=== PATIENT | male | born 1990 | race Caucasian/White ===

== ENCOUNTER 2017-08-10 09:23 | Inpatient (IN) | payer SELFPAY ==
--- NOTE | 2017-08-10 09:36 | C.PDOC ---
History Of Present Illness 27 year old male presents to the ED for evaluation of new onset swelling and inflammation to right buttock for 3 days. Patient states symptoms are worsening. He denies fever, chills, discharge, trauma. NEW ONSET SWELLING, INFLAMMATION R BUTTOCK X 3 DAYS. WORSENING. NO FEVER, DC, TRAUMA. EXAM MILD DIST NONTOXIC SKIN +R PERIRECTAL/BUTTOCK ERYTHEMA W FOCAL INDURATION C/W ABSCESS. INTACT REMAINDER NEG NPO SINCE LAST NIGHT. CT, PAIN RX Time Seen by Provider: 08/10/17 09:36 History Per: Patient History/Exam Limitations: no limitations Onset/Duration Of Symptoms: Days (3) Current Symptoms Are (Timing): Worse Additional History Per: Patient Past Medical History Reviewed: Historical Data, Nursing Documentation, Vital Signs Vital Signs: Last Vital Signs Temp 97.7 F 08/10/17 09:39 Pulse 89 08/10/17 09:39 Resp 18 08/10/17 09:39 BP 125/80 08/10/17 09:39 Pulse Ox 100 08/10/17 15:29 - Medical History PMH: No Chronic Diseases Surgical History: No Surg Hx Family History: States: Unknown Family Hx Physical Exam - Physical Exam Appears: Non-toxic, Other (in mild distress ) Skin: Normal Color, Warm, Dry Head: Atraumatic, Normacephalic, Other (right perirectal/buttock erythema with focal induration consistent with abscess. intact ) Eye(s): bilateral: Normal Inspection Oral Mucosa: Moist Neck: Supple Chest: Symmetrical, No Deformity, No Tenderness Cardiovascular: Rhythm Regular, No Murmur Respiratory: Normal Breath Sounds, No Rales, No Rhonchi, No Wheezing Extremity: Normal ROM, Capillary Refill (less than 2 seconds ) Neurological/Psych: Oriented x3, Normal Speech, Normal Cognition ED Course And Treatment - Laboratory Results Result Diagrams: 08/10/17 10:25 08/10/17 10:25 O2 Sat by Pulse Oximetry: 100 (on RA ) Pulse Ox Interpretation: Normal Progress Note: Bloodwork and CT Pelvis ordered and reviewed. Dilaudid IVP, Morphine IVP, Zosyn IVP, Vancomycin IVP, Zofran IVP ordered and reviewed. Progress - Re-Evaluation Re-evaluation Note: 08/10/17 12:22 D/W SURGERY RESIDENT AWARE OF ER FINDINGS WILL EVAL IN ER 08/10/17 12:25 APPEARS COMFORTABLE NAD NONTOXIC. DOES NOT WANT ADDL PAIN RX @ THIS TIME. 08/10/17 13:32 PENDING SURG DISPO - Data Reviewed Data Reviewed: Lab, Diagnostic imaging Medical Decision Making Medical Decision Making: NPO SINCE LAST NIGHT. CT, PAIN RX Disposition Counseled Patient/Family Regarding: Studies Performed, Diagnosis - Disposition Disposition: HOSPITALIZED Disposition Time: 14:00 Condition: SERIOUS - POA Present On Arrival: None - Clinical Impression Clinical Impression: Perirectal abscess, Gas gangrene - Scribe Statement The provider has reviewed the documentation as recorded by the Scribe (Debi Pollard) Provider Attestation: All medical record entries made by the Scribe were at my direction and personally dictated by me. I have reviewed the chart and agree that the record accurately reflects my personal performance of the history, physical exam, medical decision making, and the department course for this patient. I have also personally directed, reviewed, and agree with the discharge instructions and disposition. Decision To Admit - Pt Status Changed To: Hospital Disposition Of: Inpatient - Admit Certification Admit to Inpatient:: After my assessment, the patient will require hospitalization for at least two midnights. This is because of the severity of symptoms shown, intensity of services needed, and/or the medical risk in this patient being treated as an outpatient. - InPatient: Physician Admission Certification: I certify that this patient requires 2 or more midnights of care for the following reason:: SE ENOTE - . Bed Request Type: Regular Admitting Physician: Wilmer Romero Patient Diagnosis: Perirectal abscess, Gas gangrene
[2017-08-10] MEDS ORDERED: HYDROmorphone 0.5 mg/0.5 ml ISec IVP STA (10:12)
[2017-08-10 10:35] LABS: BASO % 0.4 % (0.0-2.0); EOS % 0.3 % (0.0-4.0); HEMOGLOBIN 14.1 g/dL (12.0-18.0); LYMPH # 1.9 K/uL (1.0-4.3); LYMPH % 17.6 % (20.0-40.0); MEAN CORPUSCULAR HEMOGLOBIN 27.9 pg (27.0-31.0); MEAN CORPUSCULAR HGB CONC 33.6 g/dL (33.0-37.0); MEAN PLATELET VOLUME 8.4 fL (7.2-11.7); MONO # 0.9 K/uL (0.0-0.8); MONO % 8.1 % (0.0-10.0); NEUT % 73.6 % (50.0-75.0); NRBC % 0.1 % (0.0-2.0); RBC 5.04 Mil/uL (4.40-5.90); RED CELL DISTRIBUTION WIDTH 13.2 % (11.5-14.5); WHITE BLOOD COUNT 10.9 K/uL (4.8-10.8)
[2017-08-10 10:44] LABS: BLOOD UREA NITROGEN 12 mg/dL (9-20); GFR AFRICAN-AMERICAN > 60; GFR NON-AFRICAN AMERICAN > 60
[2017-08-10] MEDS ORDERED: Iodixanol 320 MG/ML 100 ML BOTTLE IV ONE (11:24)
[2017-08-10] MEDS ORDERED: Piperacillin/Tazobact 3.375 gm 100 ML IV STA (12:19)
--- NOTE | 2017-08-10 12:40 | CT ---
CT pelvis History: Right buttock abscess. Comparison: None available. Technique: Multiple contiguous axial images were performed through the pelvis with the use of intravenous contrast. Findings: Large perirectal abscess measuring 10.5 x 4.7 x 6.2 centimeters. The collection contains a prominent amount of air and fluid. In addition, at the inferior extent of the lesion extending into the subcutaneous soft tissues of the right buttock is a prominent amount of gas formation which may represent a gas forming infection and or gas gangrene/ necrotizing fasciitis. Thickening of the soft tissues overlying the right buttock. In addition, there appears to be air extending into the right posterior pelvis along the right pelvic sidewall from the perirectal space and adjacent to the right internal iliac vessels which is best seen on series 3, images 54 through 85. Clinical correlation. Mild thickening of the posterior rectal wall. Clinical correlation. Urinary bladder appears preserved. Prostate and seminal vesicles appear preserved. Underdistended sigmoid colon. Appendix is preserved. Shotty iliac lymph nodes are noted. Impression: 1. Large perirectal abscess measuring 10.5 x 4.7 x 6.2 centimeters. The collection contains a prominent amount of air and fluid. In addition, at the inferior extent of the lesion extending into the subcutaneous soft tissues of the right buttock is a prominent amount of gas formation which may represent a gas forming infection and or gas gangrene/ necrotizing fasciitis. Thickening of the soft tissues overlying the right buttock. In addition, there appears to be air extending into the right posterior pelvis along the right pelvic sidewall from the perirectal space and adjacent to the right internal iliac vessels which is best seen on series 3, images 54 through 85. Clinical correlation. 2. Mild thickening of the posterior rectal wall. Clinical correlation. 3. Shotty iliac lymph nodes are noted. These findings were discussed with Dr. Jolly at 12:25 p.m. on 08/10/2017.
[2017-08-10] MEDS ORDERED: Piperacillin/Tazobact 3.375 gm 100 ML IVPB ONE (12:46)
--- NOTE | 2017-08-10 13:03 | CP.PCM.CON ---
History of Present Illness - History of Present Illness History of Present Illness: PGY-1 surgery consult note for Dr Romero. Mr Kwok is a 27 year old male with no significant past medical history who presented to [facility] ER due to right-sided perirectal pain for the past 4 days. He states he noticed what he thought was a hemorrhoid 4 days ago and applied preparation H and liquid glycerin, as this regimen worked for him the last time he had a hemorrhoid 3 months ago. However on this occasion his pain worsened. He admits to fever and chills prior to presentation. He states he was constipated for a few days but that yesterday he took dulcolax and had a normal bowel movement shortly thereafter. He denies nausea, vomiting, bleeding from site. His last meal was last night and consisted of pasta. PMHx: Hx of Hemorrhoids PSHx: Denies Allergies: NKA Home meds: None FamHx: Mother - DM2 SocialHx: Denies tobacco history, denies alcohol or illicit drug use, visiting from [place] with Review of Systems - Constitutional Constitutional: Chills, Fever. absent: Headache, Weight Loss - EENT Eyes: absent: Change in Vision Nose/Mouth/Throat: absent: Nasal Congestion - Cardiovascular Cardiovascular: absent: Chest Pain - Respiratory Respiratory: absent: Dyspnea, Wheezing - Gastrointestinal Gastrointestinal: Change in Bowel Habits, Constipation. absent: Abdominal Pain , Diarrhea, Hematochezia, Nausea, Vomiting - Genitourinary Genitourinary: absent: Dysuria - Musculoskeletal Musculoskeletal: absent: Arthralgias - Neurological Neurological: absent: Confusion Past Patient History - Past Social History Smoking Status: Never Smoked - PSYCHIATRIC Hx Substance Use: No - SURGICAL HISTORY Hx Surgeries: No Meds Allergies/Adverse Reactions: Allergies Allergy/AdvReac Type Severity Reaction Status Date / Time No Known Allergies Allergy Verified 08/10/17 09:42 - Medications Medications: Current Medications Vancomycin HCl 1,000 mg/ (Sodium Chloride) 250 mls @ 166.6 mls/hr IVPB ONCE ONE PRN Reason: Protocol Stop: 08/10/17 13:51 Physical Exam - Constitutional Appears: Well, No Acute Distress, Other (obesity) - Head Exam Head Exam: ATRAUMATIC, NORMAL INSPECTION - Eye Exam Eye Exam: EOMI Pupil Exam: PERRL - ENT Exam ENT Exam: Mucous Membranes Moist - Neck Exam Neck exam: Positive for: Normal Inspection. Negative for: Lymphadenopathy, Tenderness - Respiratory Exam Respiratory Exam: Clear to Auscultation Bilateral, NORMAL BREATHING PATTERN. absent: Rales, Rhonchi, Wheezes - Cardiovascular Exam Cardiovascular Exam: REGULAR RHYTHM. absent: +S1, +S2, Systolic Murmur - GI/Abdominal Exam GI & Abdominal Exam: Normal Bowel Sounds, Soft. absent: Tenderness - Rectal Exam Additional comments: Right sided perirectal area 4cm x 2cm of induration and erythema, tender to palpation no sinus tract, no drainage - Extremities Exam Extremities exam: Positive for: normal inspection - Neurological Exam Neurological exam: Alert, Oriented x3 - Psychiatric Exam Psychiatric exam: Normal Affect, Normal Mood - Skin Skin Exam: Intact, Warm Additional comments: as stated above Results - Vital Signs Recent Vital Signs: Last Vital Signs Temp 97.7 F 08/10/17 09:39 Pulse 89 08/10/17 09:39 Resp 18 08/10/17 09:39 BP 125/80 08/10/17 09:39 Pulse Ox 100 08/10/17 09:39 - Labs Result Diagrams: 08/10/17 10:25 08/10/17 10:25 Labs: Laboratory Results - last 24 hr 08/10/17 08/10/17 10:25 10:25 WBC 10.9 H RBC 5.04 Hgb 14.1 Hct 41.8 MCV 83.0 MCH 27.9 MCHC 33.6 RDW 13.2 Plt Count 234 MPV 8.4 Neut % (Auto) 73.6 Lymph % (Auto) 17.6 L [place] % (Auto) 8.1 Eos % (Auto) 0.3 Baso % (Auto) 0.4 Neut # (Auto) 8.0 H Lymph # (Auto) 1.9 Gem # (Auto) 0.9 H Eos # (Auto) 0.0 Baso # (Auto) 0.0 Sodium 143 Potassium 3.9 Chloride 100 Carbon Dioxide 27 Anion Gap 20 BUN 12 Creatinine 0.7 L Est GFR ( Amer) > 60 Est GFR (Non-Af Amer) > 60 Random Glucose 107 Calcium 9.0 Assessment & Plan (1) Perirectal abscess Assessment and Plan: -Large right-sided perirectal abscess with possible gas forming infection -Keep NPO for now -abx -pain control -will discuss findings with Dr Romero; possible OR later today Imaging: Pelvis CT: * Large perirectal abscess measuring 10.5 x 4.7 x 6.2 centimeters. The collection contains a prominent amount of air and fluid. In addition, at the inferior extent of the lesion extending into the subcutaneous soft tissues of the right buttock is a prominent amount of gas formation which may represent a gas forming infection and or gas gangrene/ necrotizing fasciitis. Thickening of the soft tissues overlying the right buttock. In addition, there appears to be air extending into the right posterior pelvis along the right pelvic sidewall from the perirectal space and adjacent to the right internal iliac vessels which is best seen on series 3, images 54 through 85. Clinical correlation. Status: Acute Priority: High
[2017-08-10 13:09] LABS: INR 1.3; PROTHROMBIN TIME 14.7 SECONDS (9.7-12.2)
[2017-08-10] MEDS ORDERED: Vancomycin 1 gm/NS 200 ml 1 GM/200 ML BAG IVPB ONE ×2 (13:45)
--- NOTE | 2017-08-10 14:58 | CP.PCM.HP ---
History of Present Illness - History of Present Illness History of Present Illness: PGY-[address] Romero. Mr Kwok is a 27 year old male with no significant past medical history who presented to [facility] ER due to right-sided perirectal pain for the past 4 days. He states he noticed what he thought was a hemorrhoid 4 days ago and applied preparation H and liquid glycerin, as this regimen worked for him the last time he had a hemorrhoid 3 months ago. However on this occasion his pain worsened. He admits to fever and chills prior to presentation. He states he was constipated for a few days but that yesterday he took dulcolax and had a normal bowel movement shortly thereafter. He denies nausea, vomiting, bleeding from site. His last meal was last night and consisted of pasta. PMHx: Hx of Hemorrhoids PSHx: Denies Allergies: NKA Home meds: None FamHx: Mother - DM2 SocialHx: Denies tobacco history, denies alcohol or illicit drug use, visiting from [place] with Present on Admission - Present on Admission Any Indicators Present on Admission: No Review of Systems - Hematologic/Lymphatic Additional comments: - Constitutional Constitutional: Chills, Fever. absent: Headache, Weight Loss - EENT Eyes: absent: Change in Vision Nose/Mouth/Throat: absent: Nasal Congestion - Cardiovascular Cardiovascular: absent: Chest Pain - Respiratory Respiratory: absent: Dyspnea, Wheezing - Gastrointestinal Gastrointestinal: Change in Bowel Habits, Constipation. absent: Abdominal Pain , Diarrhea, Hematochezia, Nausea, Vomiting - Genitourinary Genitourinary: absent: Dysuria - Musculoskeletal Musculoskeletal: absent: Arthralgias - Neurological Neurological: absent: Confusion Past Patient History - Past Social History Smoking Status: Never Smoked - PSYCHIATRIC Hx Substance Use: No - SURGICAL HISTORY Hx Surgeries: No Meds Allergies/Adverse Reactions: Allergies Allergy/AdvReac Type Severity Reaction Status Date / Time No Known Allergies Allergy Verified 08/10/17 09:42 Physical Exam - Additional Findings Additional findings: - Constitutional Appears: Well, No Acute Distress, Other (obesity) - Head Exam Head Exam: ATRAUMATIC, NORMAL INSPECTION - Eye Exam Eye Exam: EOMI Pupil Exam: PERRL - ENT Exam ENT Exam: Mucous Membranes Moist - Neck Exam Neck exam: Positive for: Normal Inspection. Negative for: Lymphadenopathy, Tenderness - Respiratory Exam Respiratory Exam: Clear to Auscultation Bilateral, NORMAL BREATHING PATTERN. absent: Rales, Rhonchi, Wheezes - Cardiovascular Exam Cardiovascular Exam: REGULAR RHYTHM. absent: +S1, +S2, Systolic Murmur - GI/Abdominal Exam GI & Abdominal Exam: Normal Bowel Sounds, Soft. absent: Tenderness - Rectal Exam Additional comments: Right sided perirectal area 4cm x 2cm of induration and erythema, tender to palpation no sinus tract, no drainage - Extremities Exam Extremities exam: Positive for: normal inspection - Neurological Exam Neurological exam: Alert, Oriented x3 - Psychiatric Exam Psychiatric exam: Normal Affect, Normal Mood - Skin Skin Exam: Intact, Warm Additional comments: as stated above Results - Vital Signs Recent Vital Signs: Last Vital Signs Temp 97.7 F 08/10/17 09:39 Pulse 89 08/10/17 09:39 Resp 18 08/10/17 09:39 BP 125/80 08/10/17 09:39 Pulse Ox 100 08/10/17 09:39 - Labs Result Diagrams: 08/10/17 10:25 08/10/17 10:25 Labs: Laboratory Results - last 24 hr 08/10/17 08/10/17 08/10/17 10:25 10:25 12:46 WBC 10.9 H RBC 5.04 Hgb 14.1 Hct 41.8 MCV 83.0 MCH 27.9 MCHC 33.6 RDW 13.2 Plt Count 234 MPV 8.4 Neut % (Auto) 73.6 Lymph % (Auto) 17.[address] [place] % (Auto) 8.1 Eos % (Auto) 0.3 Baso % (Auto) 0.4 Neut # (Auto) 8.0 H Lymph # (Auto) 1.9 [place] # (Auto) 0.9 H Eos # (Auto) 0.0 Baso # (Auto) 0.0 PT 14.7 H INR 1.3 APTT 32 Sodium 143 Potassium 3.9 Chloride 100 Carbon Dioxide 27 Anion Gap 20 BUN 12 Creatinine 0.7 L Est GFR ( Amer) > 60 Est GFR (Non-Af Amer) > 60 Random Glucose 107 Calcium 9.0 Blood Type Antibody Screen 08/10/17 12:46 WBC RBC Hgb Hct MCV MCH MCHC RDW Plt Count MPV Neut % (Auto) Lymph % (Auto) [place] % (Auto) Eos % (Auto) Baso % (Auto) Neut # (Auto) Lymph # (Auto) [place] # (Auto) Eos # (Auto) Baso # (Auto) PT INR APTT Sodium Potassium Chloride Carbon Dioxide Anion Gap BUN Creatinine Est GFR ( Amer) Est GFR (Non-Af Amer) Random Glucose Calcium Blood Type O POSITIVE Antibody Screen Negative Assessment & Plan (1) Perirectal abscess Assessment and Plan: -Large right-sided perirectal abscess with possible gas forming infection -Keep NPO for now -abx, F/U cultures -pain control -will discuss findings with Dr Romero; possible OR later today Imaging: Pelvis CT: * Large perirectal abscess measuring 10.5 x 4.7 x 6.2 centimeters. The collection contains a prominent amount of air and fluid. In addition, at the inferior extent of the lesion extending into the subcutaneous soft tissues of the right buttock is a prominent amount of gas formation which may represent a gas forming infection and or gas gangrene/ necrotizing fasciitis. Thickening of the soft tissues overlying the right buttock. In addition, there appears to be air extending into the right posterior pelvis along the right pelvic sidewall from the perirectal space and adjacent to the right internal iliac vessels which is best seen on series 3, images 54 through 85. Clinical correlation. Status: Acute Priority: High
[2017-08-10] MEDS ORDERED: Lidocaine/Epi 1% 1:100000 20 ML IJ ONE (17:43)
[2017-08-10] MEDS ORDERED: Bupivacaine 0.25% Inj(30mL) IJ ONE (17:45)
[2017-08-10] MEDS ORDERED: Propofol 10 mg/ml Inj (20 ML) ONE (18:03)
--- NOTE | 2017-08-10 18:20 | PCM.SURG1 ---
Surgeon's Initial Post Op Note - Surgeon's Notes Surgeon: Dr. Romero Grain Blender: Sofya Schreiber, PGY-1; Jean-Paul Wiley OMS-III Pre-Operative Diagnosis: Perianal and perirectal abscess Operative Findings: See op report Post-Operative Diagnosis: Perianal and perirectal abscess Operation Performed: Incision and drainage of perianal and perirectal abscess Specimen/Specimens Removed: None Estimated Blood Loss: EBL {In ML}: 20 Blood Products Given: N/A Drains Used: No Drains Post-Op Condition: Good Date of Surgery/Procedure: 08/10/17 Time of Surgery/Procedure: 18:23
[2017-08-10] MEDS ORDERED: HYDROmorphone 0.5 mg/0.5 ml ISec IVP PRN (18:48)
[2017-08-10] MEDS ORDERED: Oxycodone/Acetaminophen 5/325 mg Tab PO PRN (19:02)
[2017-08-10] MEDS: Clindamycin 300 MG in Sodium Chloride 0.9% 50 ML IVPB SCH (20:15)
[2017-08-10] MEDS: Piperacillin/Tazobact 3.375 GM in Sodium Chloride 100 ML IVPB SCH ×2 (22:29→23:46)
[2017-08-10] MEDS: Vancomycin 1 gm/NS 200 ml 1 GM/200 ML BAG IVPB SCH (22:30)
[2017-08-11 01:24] VITALS: RESP 20
[2017-08-11] MEDS: Clindamycin 300 MG in Sodium Chloride 0.9% 50 ML IVPB SCH ×4 (02:18→19:07)
--- NOTE | 2017-08-11 02:38 | OP ---
PROCEDURE DATE: 08/10/2017. PREOPERATIVE DIAGNOSIS: Large perirectal abscess. POSTOPERATIVE DIAGNOSIS: Large anorectal abscess. PROCEDURES DONE: 1. Incision and drainage of perirectal abscess. 2. Incision and drainage of perianal abscess. 3. Excisional debridement of anorectal abscess wound. SURGEON: Wilmer Romero MD. BODY LINER: PGY-2 resident. TYPE OF ANESTHESIA: General endotracheal tube anesthesia. ESTIMATED BLOOD LOSS: Around 20 mL. DRAIN: None. PATHOLOGY: The pus was sent for blood culture and sensitivity. COMPLICATIONS: None. INTRAOPERATIVE FINDINGS: The patient has a large anorectal abscess extending to the right gluteal area. DESCRIPTION OF PROCEDURE: On intraoperative steps, this is a 27-year-old male who was diagnosed with large anorectal abscess and the patient was consented for incision and drainage. The patient was brought to the OR, placed supine on operating table. After induction of anesthesia, the patient was placed in a lithotomy position. The cruciate stab incision was made in the posterior perianal area and a perirectal space was entered. The abscess cavity was drained and the patient also had extension into the right gluteal and perianal area and that abscess was also drained and the wound was irrigated. Hemostasis was achieved. Now with blunt and sharp dissection, the debridement of the combined wound was done and again hemostasis was achieved and packed with iodoform packing and dry sterile dressing was applied. The patient tolerated the procedure well. Count of instrument gauze was correct. There was no apparent complication. The patient was extubated in OR and sent to the Postanesthesia Care Unit in stable condition. Wilemr Romero MD
[2017-08-11] MEDS: Piperacillin/Tazobact 3.375 GM in Sodium Chloride 100 ML IVPB SCH ×3 (06:08→17:55)
--- NOTE | 2017-08-11 09:11 | CP.PCM.PN ---
Subjective - Date & Time of Evaluation Date of Evaluation: 08/11/17 Time of Evaluation: 09:11 - Subjective Subjective: General surgery progress note for Dr. Maxim Schreiber, PGY-1 Pt S & E at bedside. Pt comfortable overnight, no pain. No complaints overnight. Did not require pain meds overnight. Afebrile. No acute events per nursing. Objective - Vital Signs/Intake and Output Vital Signs (last 24 hours): Temp Pulse Resp BP Pulse Ox 98.3 F 95 H 20 103/67 98 08/11/17 00:00 08/11/17 00:00 08/11/17 00:00 08/11/17 00:00 08/11/17 00:00 Intake and Output: 08/11/17 08/11/17 06:59 18:59 Intake Total 1090 Balance 1090 - Medications Medications: Current Medications Clindamycin Phosphate 300 mg/ (Sodium Chloride) 52 mls @ 104 mls/hr IVPB Q6H ROBINA PRN Reason: Protocol Last Admin: 08/11/17 08:30 Dose: 104 mls/hr Piperacillin Sod/Tazobactam (Sod 3.375 gm/ Sodium Chloride) 100 mls @ 200 mls/ hr IVPB Q6H ROBINA PRN Reason: Protocol Last Admin: 08/11/17 06:08 Dose: 200 mls/hr Vancomycin/Sodium Chloride (Vancomycin 1 Gm/Ns 200 Ml) 1 gm in 200 mls @ 133.333 mls/hr IVPB Q24H ROBINA PRN Reason: Protocol Stop: 08/15/17 21:01 Last Admin: 08/10/17 22:30 Dose: 133.333 mls/hr Oxycodone/Acetaminophen (Percocet 5/325 Mg Tab) 1 tab PO Q4H PRN PRN Reason: Pain, moderate (4-7) Stop: 08/13/17 19:03 Pneumococcal Polyvalent Vaccine (Pneumovax 23 Vaccine) 0.5 ml IM .ONCE ONE Stop: 08/12/17 14:01 - Labs Labs: 08/10/17 10:25 08/10/17 10:25 PT 14.7 SECONDS (9.7-12.2) H 08/10/17 12:46 INR 1.3 08/10/17 12:46 APTT 32 SECONDS (21-34) 08/10/17 12:46 - Constitutional Appears: Non-toxic, No Acute Distress - Head Exam Head Exam: ATRAUMATIC, NORMAL INSPECTION, NORMOCEPHALIC - Eye Exam Eye Exam: EOMI, Normal appearance - ENT Exam ENT Exam: Mucous Membranes Moist, Normal Exam - Neck Exam Neck Exam: Full ROM, Normal Inspection - Respiratory Exam Respiratory Exam: NORMAL BREATHING PATTERN - Cardiovascular Exam Cardiovascular Exam: REGULAR RHYTHM, +S1, +S2 - GI/Abdominal Exam GI & Abdominal Exam: Soft. absent: Tenderness - Rectal Exam Additional comments: Dressing with moderate amount of sero-sanguinous strike through, area of tenderness and erythema decreased. Packing in place- removed, very tender. - Neurological Exam Neurological Exam: Alert, Awake, CN II-XII Intact, Oriented x3 - Psychiatric Exam Psychiatric exam: Normal Affect, Normal Mood - Skin Skin Exam: Dry, Normal Color, Warm Assessment and Plan - Assessment and Plan (Free Text) Assessment: 27M POD #1 s/p perianal and perirectal I & D Plan: Cont ABx Cont pain control PRN Dressing changed today Reg diet Ambulate FU wound cx Will monitor Will DW attending Candie, PGY-1
[2017-08-11] MEDS ORDERED: HYDROmorphone 0.5 mg/0.5 ml ISec IVP STA (09:45)
[2017-08-11 11:00] LABS: BASO % 0.4 % (0.0-2.0); EOS % 0.3 % (0.0-4.0); HEMOGLOBIN 12.4 g/dL (12.0-18.0); LYMPH # 2.3 K/uL (1.0-4.3); LYMPH % 20.3 % (20.0-40.0); MEAN CORPUSCULAR HEMOGLOBIN 28.4 pg (27.0-31.0); MEAN CORPUSCULAR HGB CONC 34.2 g/dL (33.0-37.0); MEAN PLATELET VOLUME 7.9 fL (7.2-11.7); NEUT # 7.8 K/uL (1.8-7.0); RBC 4.36 Mil/uL (4.40-5.90); RED CELL DISTRIBUTION WIDTH 13.3 % (11.5-14.5); WHITE BLOOD COUNT 11.2 K/uL (4.8-10.8)
--- NOTE | 2017-08-11 11:07 | CP.PCM.CON ---
History of Present Illness - History of Present Illness History of Present Illness: 27 year old male presented to [facility] ER due to right-sided perirectal pain for the past 4 days. He admits to fever and chills prior to presentation. Seen in ER and admitted for perirectal abscess Went to OR for drainage IV rx ordered PMHx: Hx of Hemorrhoids PSHx: Denies Allergies: NKA Home meds: None FamHx: Mother - DM2 SocialHx: Denies tobacco history, denies alcohol or illicit drug use, visiting from [place] with Review of Systems - Review of Systems All systems: reviewed and no additional remarkable complaints except Past Patient History - Past Medical History & Family History Past Medical History?: No - Past Social History Smoking Status: Never Smoked - CARDIAC Hx Cardiac Disorders: No - PULMONARY Hx Respiratory Disorders: No - NEUROLOGICAL Hx Neurological Disorder: No - HEENT Hx HEENT Problems: No - RENAL Hx Chronic Kidney Disease: No - ENDOCRINE/METABOLIC Hx Endocrine Disorders: No - HEMATOLOGICAL/ONCOLOGICAL Hx Blood Disorders: No - INTEGUMENTARY Hx Dermatological Problems: No - MUSCULOSKELETAL/RHEUMATOLOGICAL Hx Falls: No - GASTROINTESTINAL Hx Gastrointestinal Disorders: No - GENITOURINARY/GYNECOLOGICAL Hx Genitourinary Disorders: No - PSYCHIATRIC Hx Substance Use: No - SURGICAL HISTORY Hx Surgeries: No - ANESTHESIA Hx Anesthesia: No Hx Anesthesia Reactions: No Hx Malignant Hyperthermia: No Has any member of the family had a problem w/ anesthesia?: No Meds Allergies/Adverse Reactions: Allergies Allergy/AdvReac Type Severity Reaction Status Date / Time No Known Allergies Allergy Verified 08/10/17 09:42 - Medications Medications: Current Medications Clindamycin Phosphate 300 mg/ (Sodium Chloride) 52 mls @ 104 mls/hr IVPB Q6H ROBINA PRN Reason: Protocol Last Admin: 08/11/17 08:30 Dose: 104 mls/hr Piperacillin Sod/Tazobactam (Sod 3.375 gm/ Sodium Chloride) 100 mls @ 200 mls/ hr IVPB Q6H ROBINA PRN Reason: Protocol Last Admin: 08/11/17 06:08 Dose: 200 mls/hr Vancomycin/Sodium Chloride (Vancomycin 1 Gm/Ns 200 Ml) 1 gm in 200 mls @ 133.333 mls/hr IVPB Q24H ROBINA PRN Reason: Protocol Stop: 08/15/17 21:01 Last Admin: 08/10/17 22:30 Dose: 133.333 mls/hr Oxycodone/Acetaminophen (Percocet 5/325 Mg Tab) 1 tab PO Q4H PRN PRN Reason: Pain, moderate (4-7) Stop: 08/13/17 19:03 Pneumococcal Polyvalent Vaccine (Pneumovax 23 Vaccine) 0.5 ml IM .ONCE ONE Stop: 08/12/17 14:01 Physical Exam - Constitutional Appears: No Acute Distress, Chronically Ill - Head Exam Head Exam: ATRAUMATIC, NORMOCEPHALIC - Eye Exam Eye Exam: PERRL - ENT Exam ENT Exam: Mucous Membranes Dry, Normal External Ear Exam - Neck Exam Neck exam: Negative for: Lymphadenopathy - Respiratory Exam Respiratory Exam: Decreased Breath Sounds - Cardiovascular Exam Cardiovascular Exam: REGULAR RHYTHM - GI/Abdominal Exam GI & Abdominal Exam: Diminished Bowel Sounds, Soft. absent: Tenderness - Rectal Exam Rectal Exam: Deferred Additional comments: + shima rectal abscess packing in place - Exam Exam: NORMAL INSPECTION - Extremities Exam Extremities exam: Positive for: pedal pulses present. Negative for: calf tenderness, pedal edema, tenderness - Back Exam Back exam: absent: CVA tenderness (L), CVA tenderness (R) - Neurological Exam Neurological exam: Alert, CN II-XII Intact, Oriented x3, Reflexes Normal - Psychiatric Exam Psychiatric exam: Normal Mood - Skin Skin Exam: Dry Results - Vital Signs Recent Vital Signs: Last Vital Signs Temp 99 F 08/11/17 07:00 Pulse 79 08/11/17 07:00 Resp 20 08/11/17 07:00 BP 104/70 08/11/17 07:00 Pulse Ox 97 08/11/17 07:00 - Labs Result Diagrams: 08/11/17 10:52 08/10/17 10:25 Labs: Laboratory Results - last 24 hr 08/10/17 08/10/17 08/11/17 12:46 12:46 10:52 WBC 11.2 H RBC 4.36 L Hgb 12.4 Hct 36.2 MCV 83.0 MCH 28.4 MCHC 34.2 RDW 13.3 Plt Count 238 MPV 7.9 Neut % (Auto) 70.0 Lymph % (Auto) 20.3 [place] % (Auto) 9.0 Eos % (Auto) 0.3 Baso % (Auto) 0.4 Neut # (Auto) 7.8 H Lymph # (Auto) 2.3 [place] # (Auto) 1.0 H Eos # (Auto) 0.0 Baso # (Auto) 0.0 PT 14.7 H INR 1.3 APTT 32 Blood Type O POSITIVE Antibody Screen Negative Assessment & Plan (1) Gas gangrene Status: Acute (2) Perirectal abscess Status: Acute Priority: High - Assessment and Plan (Free Text) Assessment: perirectal abscess / s/p OR drainage cont IV antibioitics await cultures
[2017-08-11 11:09] LABS: BLOOD UREA NITROGEN 10 mg/dL (9-20); CALCIUM 8.2 mg/dl (8.6-10.4); GFR AFRICAN-AMERICAN > 60; GFR NON-AFRICAN AMERICAN > 60
[2017-08-11] MEDS: Vancomycin 1 gm/NS 200 ml 1 GM/200 ML BAG IVPB SCH (20:48)
[2017-08-12] MEDS: Piperacillin/Tazobact 3.375 GM in Sodium Chloride 100 ML IVPB SCH ×3 (00:02→12:42)
[2017-08-12] MEDS: Clindamycin 300 MG in Sodium Chloride 0.9% 50 ML IVPB SCH ×3 (01:39→13:57)
[2017-08-12 07:54] VITALS: BP 112/73; PULSE 64; TEMP 98.3; O2SAT 98
--- NOTE | 2017-08-12 12:47 | CP.PCM.DIS ---
Provider - Provider Date of Admission: 08/10/17 14:01 Attending physician: Wilmer Romero MD Primary care physician: None Consults: ID: Dr [id number] Time Spent in preparation of Discharge (in minutes): 33 Diagnosis - Discharge Diagnosis (1) Perirectal abscess Status: Acute Priority: High Hospital Course - Lab Results Lab Results: Micro Results 08/10/17 18:25 Other: Please Indicate Gram Stain - Final 08/10/17 18:25 Other: Please Indicate Wound Culture - Final Klebsiella Pneumoniae Ssp Pneu 08/10/17 12:15 Blood Blood Culture - Preliminary NO GROWTH AFTER 24 HOURS 08/10/17 12:30 Blood Blood Culture - Preliminary NO GROWTH AFTER 24 HOURS Most Recent Lab Values WBC 11.2 K/uL (4.8-10.8) H 08/11/17 10:52 RBC 4.36 Mil/uL (4.40-5.90) L 08/11/17 10:52 Hgb 12.4 g/dL (12.0-18.0) 08/11/17 10:52 Hct 36.2 % (35.0-51.0) 08/11/17 10:52 MCV 83.0 fL (80.0-94.0) 08/11/17 10:52 MCH 28.4 pg (27.0-31.0) 08/11/17 10:52 MCHC 34.2 g/dL (33.0-37.0) 08/11/17 10:52 RDW 13.3 % (11.5-14.5) 08/11/17 10:52 Plt Count 238 K/uL (130-400) 08/11/17 10:52 MPV 7.9 fL (7.2-11.7) 08/11/17 10:52 Neut % (Auto) 70.0 % (50.0-75.0) 08/11/17 10:52 Lymph % (Auto) 20.3 % (20.0-40.0) 08/11/17 10:52 [place] % (Auto) 9.0 % (0.0-10.0) 08/11/17 10:52 Eos % (Auto) 0.3 % (0.0-4.0) 08/11/17 10:52 Baso % (Auto) 0.4 % (0.0-2.0) 08/11/17 10:52 Neut # (Auto) 7.8 K/uL (1.8-7.0) H 08/11/17 10:52 Lymph # (Auto) 2.3 K/uL (1.0-4.3) 08/11/17 10:52 [place] # (Auto) 1.0 K/uL (0.0-0.8) H 08/11/17 10:52 Eos # (Auto) 0.0 K/uL (0.0-0.7) 08/11/17 10:52 Baso # (Auto) 0.0 K/uL (0.0-0.2) 08/11/17 10:52 PT 14.7 SECONDS (9.7-12.2) H 08/10/17 12:46 INR 1.3 08/10/17 12:46 APTT 32 SECONDS (21-34) 08/10/17 12:46 Sodium 141 mmol/L (132-148) 08/11/17 10:52 Potassium 3.9 mmol/L (3.6-5.2) 08/11/17 10:52 Chloride 98 mmol/L (98-107) 08/11/17 10:52 Carbon Dioxide 30 mmol/L (22-30) 08/11/17 10:52 Anion Gap 16 (10-20) 08/11/17 10:52 BUN 10 mg/dL (9-20) 08/11/17 10:52 Creatinine 0.8 mg/dL (0.8-1.5) 08/11/17 10:52 Est GFR ( Amer) > 60 08/11/17 10:52 Est GFR (Non-Af Amer) > 60 08/11/17 10:52 Random Glucose 120 mg/dL (75-110) H 08/11/17 10:52 Calcium 8.2 mg/dl (8.6-10.4) L 08/11/17 10:52 Vancomycin Trough < 5.0 ug/mL (5.0-10.0) L 08/12/17 10:57 Blood Type O POSITIVE 08/10/17 12:46 Antibody Screen Negative 08/10/17 12:46 - Hospital Course Hospital Course: PGY-[address] Romero. Mr Kwok is a 27 year old male with no significant past medical history who presented to [facility] ER due to right-sided perirectal pain for the past 4 days. He states he noticed what he thought was a hemorrhoid 4 days ago and applied preparation H and liquid glycerin, as this regimen worked for him the last time he had a hemorrhoid 3 months ago. However on this occasion his pain worsened. He admits to fever and chills prior to presentation. He states he was constipated for a few days but that yesterday he took dulcolax and had a normal bowel movement shortly thereafter. He denies nausea, vomiting, bleeding from site. His last meal was last night and consisted of pasta. PMHx: Hx of Hemorrhoids PSHx: Denies Allergies: NKA Home meds: None FamHx: Mother - DM2 SocialHx: Denies tobacco history, denies alcohol or illicit drug use, visiting from [place] with HOSPITAL COURSE: Patient was admitted for perirectal abscess. (Please see CT pelvis results shown below). He was admitted under Surgeon, Dr Romero's service who performed an incision and drainage of perinanal and perirectal abscess. The patient recovered well. He remained afebrile and had a very mild leukocytosis ( highest WBC was 11.2). Infectious disease was consulted, Dr Epps. He was given zosyn and vancomycin. Would cultures were positive for klebseilla pneumoniae which were sensitive to most abx (except amoxicillin). He was discharged on clindamycin, levaquin, percocet and colace. Pelvis CT: * Large perirectal abscess measuring 10.5 x 4.7 x 6.2 centimeters. The collection contains a prominent amount of air and fluid. In addition, at the inferior extent of the lesion extending into the subcutaneous soft tissues of the right buttock is a prominent amount of gas formation which may represent a gas forming infection and or gas gangrene/ necrotizing fasciitis. Thickening of the soft tissues overlying the right buttock. In addition, there appears to be air extending into the right posterior pelvis along the right pelvic sidewall from the perirectal space and adjacent to the right internal iliac vessels which is best seen on series 3, images 54 through 85. Clinical correlation. Discharge Exam - Head Exam Head Exam: ATRAUMATIC, NORMAL INSPECTION, NORMOCEPHALIC - Additional Findings Additional findings: - Constitutional Appears: Non-toxic, No Acute Distress - Head Exam Head Exam: ATRAUMATIC, NORMAL INSPECTION, NORMOCEPHALIC - Eye Exam Eye Exam: EOMI, Normal appearance - ENT Exam ENT Exam: Mucous Membranes Moist, Normal Exam - Neck Exam Neck Exam: Full ROM, Normal Inspection - Respiratory Exam Respiratory Exam: NORMAL BREATHING PATTERN - Cardiovascular Exam Cardiovascular Exam: REGULAR RHYTHM, +S1, +S2 - GI/Abdominal Exam GI & Abdominal Exam: Soft. absent: Tenderness - Rectal Exam Additional comments: Dressing with moderate amount of sero-sanguinous strike through, area of tenderness and erythema decreased. Packing in place- removed, very tender. - Neurological Exam Neurological Exam: Alert, Awake, CN II-XII Intact, Oriented x3 - Psychiatric Exam Psychiatric exam: Normal Affect, Normal Mood - Skin Skin Exam: Dry, Normal Color, Warm Discharge Plan - Follow Up Plan Condition: SERIOUS Disposition: HOME/ ROUTINE Instructions: Necrotizing Fasciitis (DC), Necrotizing Fasciitis (GEN), Abscess (GEN) Additional Instructions: Patient is medically stable for discharge. You will be given a script for the following medications which you should take as instructed: 1. Percocet 5/325mg take 1 tablet every 6 hours only as needed for pain 2. Colace 100mg every 8 hours to treat constipation 3. Clindamycin 300mg take 1 tablet every 8 hours for the next 7 days 4. Levaquin 750mg take 1 tablet every day for the next 7 days Please follow-up with a surgeon when you return to [place] so he/she may evaluate your wound. Please avoid any strenuous activity for the next 1 month. Please keep surgical area clean for the next 1 month. You may resume normal activities in 10 days. If symptoms return please go see a medical doctor.
[2017-08-12] MEDS ORDERED: Pneumococcal 23-Valent Vaccine IM ONE (14:00)
== END 2017-08-12 16:13 | disposition home or self-care (01) | DRG 334 ==
LOC: EDBD 09:23 → C.ER 09:23 → C.9E 14:01 → C.3T 15:26
PROVIDERS: ADMIT Surgery Surgical Critical Care; ATTEND Surgery Surgical Critical Care
PROC: 0DBP0ZZ Excision of Rectum, Open Approach (ICD-10-PCS; 2017-08-10)
PROC: 0D9R0ZZ Drainage of Anal Sphincter, Open Approach (ICD-10-PCS; 2017-08-10)
PROC: 0D9P0ZZ Drainage of Rectum, Open Approach (ICD-10-PCS; principal; 2017-08-10 14:30)
DX: K61.2 Anorectal abscess (principal); D72.829 Elevated white blood cell count, unspecified; E66.9 Obesity, unspecified; Z68.37 Body mass index [BMI] 37.0-37.9, adult